=== PATIENT | male | born 1940 | race Caucasian/White ===

== ENCOUNTER 2018-08-24 14:24 | Outpatient (CLI) | payer MEDICARE, BC ==
--- NOTE | 2018-08-24 15:55 | RAD ---
THREE VIEWS LEFT FOOT: History: Left foot pain and swelling. FINDINGS: Three views of the left foot shows no evidence of acute fracture or dislocation. Mild diffuse soft ti ssue swelling is seen. No degenerative changes are present. IMPRESSION: No evidence of acute osseous abnormality. POS: [facility]OR[facility]
== END 2018-08-24 14:25 | disposition home or self-care (01) ==
LOC: RAD-FRANK 14:24
PROVIDERS: ATTEND Nurse Practitioner Family
DX: M79.89 Other specified soft tissue disorders (principal); I25.84 Coronary atherosclerosis due to calcified coronary lesion; Z95.1 Presence of aortocoronary bypass graft

== ENCOUNTER 2018-08-24 20:35 | Observation (INO) | payer MEDICARE, BC ==
[2018-08-24 21:20] LABS: #Eosinphils 0.2 thou/uL (0.0-0.7); #Monocytes 0.8 thou/uL (0.11-0.59); #Neutrophils 2.7 thou/uL (1.40-6.50); %Basophils 0.6 % (0.0-1.0); %Eosinophils 4.2 % (0.0-10.0); %Lymphocytes 34.8 % (21.0-51.0); %Monocytes 13.9 % (0.0-10.0); %Neutrophils 46.4 % (42.0-75.0); Mean Corpuscular HGB CONC 32.6 g/dL (32.0-36.0); Mean Corpuscular Hemoglobin 32.2 pg (27.0-31.0); Mean Corpuscular Volume 98.6 fL (78.0-98.0); Mean Platelet Volume 7.1 fL (7.4-10.4); Platelet Count 172 thou/uL (130-400); Red Blood Cell (RBC) Count 4.65 mill/uL (4.70-6.10); White Blood Cell (WBC) Count 5.8 thou/uL (4.8-10.8)
[2018-08-24 21:25] LABS: PTT 29.9 SEC (22.9-36.1); Prothrombin Time 13.5 SEC (12.0-14.7)
[2018-08-24 21:43] LABS: ALT (SGPT) 13 U/L (8-55); AST (SGOT) 17 U/L (5-34); Albumin 3.9 g/dL (3.4-4.8); Alkaline Phosphatase 76 U/L (40-150); Anion Gap 13 mmol/L (10-20); BUN (Urea Nitrogen) 22 mg/dL (8.4-25.7); Bilirubin, Total 0.3 mg/dL (0.2-1.2); Calc. Creatinine Clearance 0 mL/min (70-130); Calcium 9.9 mg/dL (7.8-10.44); Carbon Dioxide 27 mmol/L (23-31); Chloride 105 mmol/L (98-107); Estimated GFR-MDRD 52; Globulin 3.3 g/dL (2.4-3.5); Glucose 107 mg/dL (83-110); Potassium 4.8 mmol/L (3.5-5.1); Protein, Total 7.2 g/dL (5.8-8.1); Sodium 140 mmol/L (136-145)
--- NOTE | 2018-08-24 23:37 | ULT ---
LEFT LOWER EXTREMITY DOPPLER VENOUS ULTRASOUND: INDICATIONS: Left sided calf pain and left foot pain. TECHNIQUE: Wu-scale, color Doppler, and vascular duplex with spectral analysis was performed of the deep venou s structures of both lower extremities. The common femoral vein, superficial femoral vein, popliteal vein, posterior tibial vein, proximal greater saphenous, and proximal profunda veins were assessed b ilaterally. FINDINGS: There is partially occlusive thrombus seen within the left posterior tibial vein. The remaining deep venous segments are widely patent. IMPRESSION: Partially occlusive thrombus within the left posterior tibial vein. POS: FLORECITA
[2018-08-25] MEDS ORDERED: Heparin 25,000 units/D5W 500 ML IV SCH (00:45)
[2018-08-25] MEDS ORDERED: Heparin 10,000 UNITS/ 10 ML VIAL SLOW IVP SCH (00:45)
[2018-08-25] MEDS ORDERED: Heparin 25,000 units/D5W 500 ML ONE (00:53)
[2018-08-25] MEDS ORDERED: Ondansetron ODT 4 MG TAB PO PRN (07:57)
[2018-08-25] MEDS ORDERED: Ondansetron PF 4 MG/2 ML Vial IVP PRN (07:57)
[2018-08-25] MEDS ORDERED: Acetaminophen 325 MG TAB PO PRN (07:58)
[2018-08-25 08:53] VITALS: BMI 26.9
[2018-08-25] MEDS ORDERED: Apixaban 5 MG TAB PO SCH ×2 (09:15→21:00)
[2018-08-25 11:48] VITALS: BP 135/76; TEMP 98.2
--- NOTE | 2018-08-26 08:20 | SS ---
DATE OF ADMISSION: 08/24/2018 DATE OF DISCHARGE: 08/25/2018 CHIEF COMPLAINT: Blood clot in leg. HISTORY OF PRESENT ILLNESS: This patient is a 77-year-old male, who presented via the emergency department. The patient reports that he has been experiencing some pain in his left heel and feels like more on the plantar surface area. He has had some difficulty walking because of the pain in that area and he has been off his leg and keeping his left leg elevated. He subsequently followed up with his primary care provider, who performed x-rays, which were negative. Also had labs performed, which indicated a positive D-dimer. He was therefore called by his PCP and told that she was concerned about him having a blood clot and had him present to the emergency department. The patient has done so and had an ultrasound, which showed a partially occlusive thrombus within the left posterior tibial vein. The patient was subsequently placed on observation. The patient reports that he has no other specific problems. He has noted no pain in the calf area. He has had no other immobility, debility, long trips, or plane flights. REVIEW OF SYSTEMS: The patient reports some very mild dyspnea on exertion, which has been present for the last 2 to 3 years and stable. He has also reported some slight swelling in his left foot. Otherwise, all systems were reviewed and all pertinent positives and negatives noted in the history of present illness. PAST MEDICAL HISTORY: The patient has a history of significant coronary artery disease with multiple stents, had a history of AFib with ablation, pacemaker placement, appears to have a history of hyperlipidemia, and hypertension. PAST SURGICAL HISTORY: Coronary artery bypass graft x2 in 1993, pacemaker placement in 2012. FAMILY HISTORY: Mother had breast cancer. His father had lung cancer. SOCIAL HISTORY: The patient lives in [place]. He is a nonsmoker, nondrinker, and nondrug user. He is and lives with his . He is full code. His is his surrogate decision maker. ALLERGIES: SULFA. CURRENT MEDICATIONS: 1. Sotalol 40 mg p.o. b.i.d. 2. Magnesium 250 p.o. daily. 3. Aldactone 12.5 daily. 4. Aspirin 81 mg daily. 5. Fish oil 3200 mg daily. 6. Atorvastatin 20 mg daily. 7. Omeprazole 20 mg daily. 8. Dutasteride 0.5 at bedtime. 9. Hydroxyzine 50 mg p.o. daily. 10. Irbesartan 37.5 p.o. daily. 11. Plavix 37.5 mg daily. PHYSICAL EXAMINATION: VITAL SIGNS: Temperature was 98.1, pulse 70, respirations 18, O2 sat 98% on room air, and blood pressure is 143/83. GENERAL APPEARANCE: Age-appropriate male, who is awake, alert, oriented, pleasant, cooperative, in no distress. HEENT: PERRL. No OP lesions. HEART: Regular rate and rhythm without significant murmurs. LUNGS: Clear to auscultation bilaterally with good chest wall expansion and air exchange. ABDOMEN: Soft, nontender, and nondistended. Positive bowel sounds with no hepatosplenomegaly. EXTREMITIES: Reveal minimal edema of the left foot compared to the right. There is tenderness to palpation on the plantar surface of the calcaneus with deep palpation. There are no swelling in the calf or palpable cords. No erythema or tenderness present. The remaining extremities are without cyanosis, clubbing, or edema. NEUROLOGICAL: The patient appears to be fully intact. Moves all extremities spontaneously. He has no evidence of any focal defects. PSYCH: Normal affect and behavior. LABORATORY DATA: White count is 5.8, hemoglobin 15.0, and platelets 172. INR is 1.0, PTT 29.9. Sodium 140, potassium 4.8, chloride 105, CO2 is 27, BUN 22, creatinine 1.34, glucose 107, AST 17, ALT 13, and albumin is 3.9. IMAGING DATA: Lower extremity duplex venous shows a partially occlusive thrombus within the left posterior tibial vein. IMPRESSION AND PLAN: 1. Nonocclusive deep vein thrombosis of the left posterior tibial vein. This patient has likely had this as a result of some immobility related to his left heel pain, which appears to be of a benign nature. He has been keeping it elevated and likely had some compression of the calf with the elevation of the leg. Therefore, it likely is a reasonably provoked deep vein thrombosis. The patient was placed in the hospital on a heparin drip that will be discontinued. The patient will be started on Eliquis based on his creatinine clearance. There is no dosage adjustment indicated. Therefore, plan on 10 mg b.i.d. for a week and then converting to 5 mg b.i.d. after that. We have talked to Case Management to help get some assistance on obtaining medications for the patient. Once he has this in place, can stop the heparin drip and the patient can be safely treated at home. 2. Left heel pain with negative x-rays. I suspect the patient simply has some early plantar fasciitis type symptoms. I instructed him to apply ice appropriately. He will need to do some stretching exercises, however, he will need to avoid anti-inflammatories given his aspirin, Plavix, and Eliquis regimen. 3. History of coronary artery disease. Continue with his usual home medication regimen with aspirin and Plavix. 4. Hypertension. Continue the irbesartan. 5. Hyperlipidemia. Continue with the atorvastatin. DISPOSITION: This patient was able to receive his Eliquis. Heparin was stopped. He had assistance program information given to obtain the Eliquis given that this DVT was partial and below the knee. It is considered low risk and does not require further hospitalization. The patient will be discharged to have regular activity level, regular diet. He will continue with his usual home medications and be started on the Eliquis 10 mg p.o. b.i.d. for 1 week, then 5 mg one p.o. b.i.d. the patient is to follow up with his PCP at the next available appointment and he can return to the emergency department should he have any problems prior to that time. Job ID: [id number]
== END 2018-08-25 16:16 | disposition home or self-care (01) ==
LOC: ERS 20:35 → ERHOLD 23:33 → T4-B 08-25 07:50
PROVIDERS: ADMIT Hospitalist; ATTEND Hospitalist
DX: I82.4Z2 Acute embolism and thrombosis of unspecified deep veins of left distal lower extremity (principal); I10 Essential (primary) hypertension; E78.5 Hyperlipidemia, unspecified; R06.09 Other forms of dyspnea; Z79.82 Long term (current) use of aspirin; Z79.899 Other long term (current) drug therapy; Z88.2 Allergy status to sulfonamides; Z95.0 Presence of cardiac pacemaker; Z95.1 Presence of aortocoronary bypass graft
CPT/HCPCS: 73630; 80053 ×2; 83036; 83880; 85025 ×2; 85379; 85610; 85730; 93971; 96365; 96366 ×2; 96376; 99285; G0378 ×2; 36415; J1644

== ENCOUNTER 2020-10-27 09:57 | Outpatient (CLI) | payer MEDICARE | END 2020-10-27 09:58 | disposition home or self-care (01) | LOC: BICRAD 09:57 | PROVIDERS: ATTEND Nurse Practitioner Family | DX: C34.90 Malignant neoplasm of unspecified part of unspecified bronchus or lung (principal); I25.10 Atherosclerotic heart disease of native coronary artery without angina pectoris; I82.432 Acute embolism and thrombosis of left popliteal vein; I25.84 Coronary atherosclerosis due to calcified coronary lesion; R91.8 Other nonspecific abnormal finding of lung field; E78.5 Hyperlipidemia, unspecified; N40.1 Benign prostatic hyperplasia with lower urinary tract symptoms; I10 Essential (primary) hypertension; Z95.1 Presence of aortocoronary bypass graft; Z95.5 Presence of coronary angioplasty implant and graft; Z87.891 Personal history of nicotine dependence | CPT/HCPCS: 36415; 71046; 80053; 83880; 84153; 85025; 87086 ==

== ENCOUNTER 2020-10-31 14:04 | Outpatient (CLI) | payer MEDICARE ==
[~2020-10-31 14:04] MED LIST: Iopamidol 370 76% 100 ML VIAL ONE
== END 2020-10-31 14:05 | disposition home or self-care (01) ==
LOC: BICCT 14:04
PROVIDERS: ATTEND Internal Medicine Critical Care Medicine
DX: J18.9 Pneumonia, unspecified organism (principal); R22.2 Localized swelling, mass and lump, trunk
CPT/HCPCS: 71260; 82565; Q9967

== ENCOUNTER 2020-11-16 08:13 | Day surgery (SDC) | payer MEDICARE ==
[2020-11-16 08:38] LABS: Prothrombin Time 13.9 sec (12.0-14.7)
[2020-11-16 08:39] LABS: PTT 31.6 sec (22.9-36.1)
[2020-11-16 11:22] VITALS: BP 142/87; TEMP 98.6
== END 2020-11-16 12:45 | disposition home or self-care (01) ==
LOC: CT 08:13
PROVIDERS: ATTEND Internal Medicine Critical Care Medicine
PROC: 0BBC8ZX Excision of Right Upper Lung Lobe, Via Natural or Artificial Opening Endoscopic, Diagnostic (ICD-10-PCS; principal; 2020-11-16)
DX: J84.10 Pulmonary fibrosis, unspecified (principal); J44.1 Chronic obstructive pulmonary disease with (acute) exacerbation; I10 Essential (primary) hypertension; E78.00 Pure hypercholesterolemia, unspecified; E78.5 Hyperlipidemia, unspecified; I25.10 Atherosclerotic heart disease of native coronary artery without angina pectoris; K21.00 Gastro-esophageal reflux disease with esophagitis, without bleeding; N40.1 Benign prostatic hyperplasia with lower urinary tract symptoms; M19.90 Unspecified osteoarthritis, unspecified site; Z79.01 Long term (current) use of anticoagulants; Z79.899 Other long term (current) drug therapy; Z87.891 Personal history of nicotine dependence; Z88.2 Allergy status to sulfonamides; Z95.1 Presence of aortocoronary bypass graft; Z95.5 Presence of coronary angioplasty implant and graft; Z95.810 Presence of automatic (implantable) cardiac defibrillator
CPT/HCPCS: 32408; 71045; 77012; 85610; 85730; 88305; 88333

== ENCOUNTER 2020-12-14 08:32 | Outpatient (CLI) | payer MEDICARE | END 2020-12-14 08:33 | disposition home or self-care (01) | LOC: BICRAD 08:32 | PROVIDERS: ATTEND Internal Medicine Critical Care Medicine | DX: R06.00 Dyspnea, unspecified (principal); J98.4 Other disorders of lung | CPT/HCPCS: 71046 ==

== ENCOUNTER 2021-01-11 09:08 | Outpatient (CLI) | payer MEDICARE | END 2021-01-11 09:09 | disposition home or self-care (01) | LOC: BICRAD 09:08 | PROVIDERS: ATTEND Internal Medicine Critical Care Medicine | DX: R06.00 Dyspnea, unspecified (principal) | CPT/HCPCS: 71046 ==

== ENCOUNTER 2021-04-12 09:23 | Outpatient (CLI) | payer MEDICARE | END 2021-04-12 09:24 | disposition home or self-care (01) | LOC: BICRAD 09:23 | PROVIDERS: ATTEND Internal Medicine Critical Care Medicine | DX: R06.00 Dyspnea, unspecified (principal) | CPT/HCPCS: 71046 ==

== ENCOUNTER 2022-04-16 09:48 | Outpatient (CLI) | payer MEDICARE | END 2022-04-16 09:49 | disposition home or self-care (01) | LOC: RAD 09:48 | PROVIDERS: ATTEND Internal Medicine Critical Care Medicine | DX: R06.09 Other forms of dyspnea (principal) | CPT/HCPCS: 71046 ==